=== PATIENT | male | born 1985 | race Hispanic/Latino ===

== ENCOUNTER 2022-02-13 01:54 | Inpatient (IN) | payer OTHER ==
[2022-02-13] MEDS ORDERED: Midazolam HCl 2 mg/2 ml Vial ONE (02:33)
[2022-02-13] MEDS ORDERED: levETIRAcetam 500 MG/5 ML VIAL ONE (03:59)
[2022-02-13] MEDS: Sodium Chloride 0.9% 1,000 ML IV SCH ×2 (06:05→14:09)
[2022-02-13 06:30] VITALS: BMI 36.6
[2022-02-13] MEDS ORDERED: Ondansetron ODT 4 MG TAB PO PRN (08:56)
[2022-02-13] MEDS ORDERED: Senokot S 8.6-50 MG TAB PO PRN (08:56)
[2022-02-13] MEDS ORDERED: Acetaminophen 325 MG TAB PO PRN (08:56)
[2022-02-13] MEDS ORDERED: Ondansetron PF 4 MG/2 ML Vial IVP PRN (08:56)
[2022-02-13] MEDS ORDERED: levETIRAcetam 500 MG/5 ML VIAL SLOW IVP SCH (09:00)
[2022-02-13] MEDS ORDERED: Lorazepam 2 MG/ML VIAL SLOW IVP PRN (09:00)
[2022-02-13] MEDS ORDERED: Lorazepam 0.5 MG TAB PO PRN (09:01)
[2022-02-13] MEDS ORDERED: Lorazepam (BATCHED) 2 MG/ML SYR SLOW IVP PRN (09:13)
[2022-02-13] MEDS: Enoxaparin Sodium 40 MG/0.4 ML SYRINGE SC SCH (10:49)
[2022-02-13] MEDS ORDERED: hydrALAZINE 20 MG/ML VIAL SLOW IVP PRN (14:08)
[2022-02-13] MEDS: Buprenorphine 8mg/Naloxone 2mg per 1 FILM PO SCH (16:32)
[2022-02-14 06:05] LABS: ALT (SGPT) 109 U/L (8-55); AST (SGOT) 65 U/L (5-34); Albumin 3.4 g/dL (3.5-5.0); Alkaline Phosphatase 54 U/L (40-110); Anion Gap 10 mmol/L (10-20); BUN (Urea Nitrogen) 10 mg/dL (8.9-20.6); Bilirubin, Total 0.6 mg/dL (0.2-1.2); Calc. Creatinine Clearance 228 mL/min (70-130); Calcium 9.3 mg/dL (7.8-10.44); Carbon Dioxide 21 mmol/L (22-29); Chloride 110 mmol/L (98-107); Estimated GFR 121; Glucose 89 mg/dL (70-105); Hemoglobin 13.7 g/dL (14.0-18.0); Mean Corpuscular Volume 97.3 fL (78.0-98.0); Platelet Count 189 thou/uL (130-400); Potassium 4.5 mmol/L (3.5-5.1); Protein, Total 6.4 g/dL (6.0-8.3); RBC Distribution Width 12.5 % (11.5-14.5); Red Blood Cell (RBC) Count 4.15 mill/uL (4.70-6.10); Sodium 136 mmol/L (136-145); White Blood Cell (WBC) Count 5.7 thou/uL (4.8-10.8)
[2022-02-14 06:06] LABS: Band 2 % (5-11); Eosinophils 2 % (0-10); Lymphocytes 50 % (21-51); MDiff Complete? YES; Monocytes 8 % (0-10); Neutrophil 37 % (42-75); Reactive Lymphocytes 1 % (0-10)
[2022-02-14] MEDS: Enoxaparin Sodium 40 MG/0.4 ML SYRINGE SC SCH (09:30)
[2022-02-14] MEDS ORDERED: Nicotine 21 MG PATCH TD SCH (12:45)
[2022-02-14] MEDS: Buprenorphine 8mg/Naloxone 2mg per 1 FILM PO SCH (15:49)
[2022-02-15] MEDS ORDERED: Lorazepam (BATCHED) 2 MG/ML SYR SLOW IVP PRN (08:02)
[2022-02-15 08:57] LABS: ALT (SGPT) 128 U/L (8-55); AST (SGOT) 80 U/L (5-34); Albumin 3.6 g/dL (3.5-5.0); Alkaline Phosphatase 59 U/L (40-110); Anion Gap 13 mmol/L (10-20); BUN (Urea Nitrogen) 10 mg/dL (8.9-20.6); Bilirubin, Total 0.7 mg/dL (0.2-1.2); Calc. Creatinine Clearance 133 mL/min (70-130); Calcium 9.9 mg/dL (7.8-10.44); Carbon Dioxide 21 mmol/L (22-29); Chloride 108 mmol/L (98-107); Estimated GFR 120; Globulin 3.4 g/dL (2.4-3.5); Glucose 103 mg/dL (70-105); Sodium 138 mmol/L (136-145)
[2022-02-15] MEDS: Enoxaparin Sodium 40 MG/0.4 ML SYRINGE SC SCH (10:34)
[2022-02-15] MEDS: Nicotine 21 MG PATCH TD SCH (14:14)
[2022-02-15] MEDS: Buprenorphine 8mg/Naloxone 2mg per 1 FILM PO SCH (16:31)
[2022-02-16] MEDS: Enoxaparin Sodium 40 MG/0.4 ML SYRINGE SC SCH (10:24)
[2022-02-16] MEDS: Nicotine 21 MG PATCH TD SCH (13:33)
[2022-02-16] MEDS: Buprenorphine 8mg/Naloxone 2mg per 1 FILM PO SCH (21:32)
[2022-02-17] MEDS: Enoxaparin Sodium 40 MG/0.4 ML SYRINGE SC SCH (10:07)
[2022-02-17] MEDS: Buprenorphine 8mg/Naloxone 2mg per 1 FILM PO SCH ×3 (10:08→20:27)
[2022-02-17] MEDS: Nicotine 21 MG PATCH TD SCH (12:49)
[2022-02-17 20:18] VITALS: BP 135/77; TEMP 97.8
== END 2022-02-17 20:50 | disposition short-term general hospital (02) | DRG 918 ==
LOC: ERS 01:54 → NEURO 04:13 → INTOOBSV 04:13 → NEURO 05:53 → OBSVTOIN 02-15 08:01
PROVIDERS: ADMIT Internal Medicine; ATTEND Internal Medicine
DX: T42.6X2A Poisoning by other antiepileptic and sedative-hypnotic drugs, intentional self-harm, initial encounter (principal); F33.2 Major depressive disorder, recurrent severe without psychotic features; I10 Essential (primary) hypertension; E78.5 Hyperlipidemia, unspecified; F43.10 Post-traumatic stress disorder, unspecified; F41.9 Anxiety disorder, unspecified; G40.909 Epilepsy, unspecified, not intractable, without status epilepticus; F19.10 Other psychoactive substance abuse, uncomplicated; G35 Multiple sclerosis; Z20.822 Contact with and (suspected) exposure to COVID-19; Y92.89 Other specified places as the place of occurrence of the external cause
CPT/HCPCS: 36415; 80053; 85025; 96365; 96372; 96375; 96376; G0378; J1650; J1953; J2250; J7050; U0003; U0005